=== PATIENT | female | born 1995 | race Caucasian/White ===

== ENCOUNTER 2021-05-10 05:28 | Inpatient (IN) | payer MEDICAID ==
[2021-05-10] MEDS ORDERED: Nalbuphine 10 MG/1 ML Vial IVPUSH PRN (06:33)
[2021-05-10] MEDS ORDERED: Sodium Chloride 0.9% 10 ML Syringe FLUSH PRN (06:33)
[2021-05-10] MEDS ORDERED: Ondansetron 4 MG/2 ML SDV IVPUSH PRN (06:33)
[2021-05-10] MEDS ORDERED: Calcium Carbonate 500 MG Tab.Chew PO PRN (06:33)
[2021-05-10] MEDS ORDERED: Ampicillin 2 GM in Sodium Chloride 0.9% 100 ML IV ONE (06:33)
[2021-05-10] MEDS ORDERED: Oxytocin/Lactated Ringers 10 UNIT/1,000 ML BAG IV SCH ×2 (06:45→10:45)
[2021-05-10] MEDS ORDERED: ePHEDrine 50 MG/ML SDV IVPUSH PRN (06:53)
[2021-05-10] MEDS ORDERED: fentaNYL 100 MCG/2 ML SDV EPIDUR PRN (06:53)
[2021-05-10] MEDS ORDERED: diphenhydrAMINE 50 MG/ML SDV IVPUSH PRN (06:53)
[2021-05-10] MEDS: Lactated Ringers 1,000 ML IV SCH ×4 (07:15→16:11)
--- NOTE | 2021-05-10 07:15 | PCM.PREANE ---
Preanesthetic Assessment - Procedure Proposed Procedure: Continuous labor epidural - Anesthesia/Transfusion/Family Hx Anesthesia History: Prior Anesthesia Without Reaction - Review of Systems General: No Symptoms Pulmonary: No Symptoms Cardiovascular: No Symptoms Gastrointestinal: No Symptoms Neurological: No Symptoms Other: Reports: None - Physical Assessment Vital Signs: Last Vital Signs Temp 97.8 F 05/10/21 05:45 Pulse 80 05/10/21 05:45 Resp 16 05/10/21 05:45 BP 110/73 05/10/21 05:45 Pulse Ox 98 05/10/21 05:45 Height: 1.57 m Weight: 74.933 kg ASA Class: 2 Mental Status: Alert & Oriented x3 Airway Class: Mallampati = 2 Dentition: Reports: Partial ROM/Head Extension: Full Lungs: Clear to Auscultation, Normal Respiratory Effort Cardiovascular: Regular Rate, Regular Rhythm - Lab Values: Laboratory Last Values WBC 12.24 K/mm3 (3.98-10.04) H 05/10/21 06:55 RBC 4.26 M/mm3 (3.98-5.22) 05/10/21 06:55 Hgb 11.3 gm/dl (11.2-15.7) 05/10/21 06:55 Hct 34.3 % (34.1-44.9) 05/10/21 06:55 MCV 80.5 fl (79.4-94.8) 05/10/21 06:55 MCH 26.5 pg (25.6-32.2) 05/10/21 06:55 MCHC 32.9 g/dl (32.2-35.5) 05/10/21 06:55 RDW Std Deviation 42.5 fL (36.4-46.3) 05/10/21 06:55 Plt Count 304 K/mm3 (182-369) 05/10/21 06:55 MPV 9.1 fl (9.4-12.3) L 05/10/21 06:55 Neut % (Auto) 66.1 % (34.0-71.1) 05/10/21 06:55 Lymph % (Auto) 20.5 % (19.3-51.7) 05/10/21 06:55 Cobb % (Auto) 8.2 % (4.7-12.5) 05/10/21 06:55 Eos % (Auto) 3.6 (0.7-5.8) 05/10/21 06:55 Baso % (Auto) 0.2 % (0.1-1.2) 05/10/21 06:55 Neut # (Auto) 8.10 K/mm3 (1.56-6.13) H 05/10/21 06:55 Lymph # (Auto) 2.51 K/mm3 (1.18-3.74) 05/10/21 06:55 Cobb # (Auto) 1.00 K/mm3 (0.24-0.36) H 05/10/21 06:55 Eos # (Auto) 0.44 K/mm3 (0.04-0.36) H 05/10/21 06:55 Baso # (Auto) 0.02 K/mm3 (0.01-0.08) 05/10/21 06:55 - Allergies Allergies/Adverse Reactions: Allergies Allergy/AdvReac Type Severity Reaction Status Date / Time bupropion [From Wellbutrin] Allergy Other Verified 05/10/21 06:33 clindamycin Allergy Other Verified 05/10/21 06:33 sertraline [From Zoloft] Allergy Fainting Verified 05/10/21 06:33 - Acknowledgements Anesthesia Type Planned: Epidural Pt an Appropriate Candidate for the Planned Anesthesia: Yes Alternatives and Risks of Anesthesia Discussed w Pt/Guardian: Yes Pt/Guardian Understands and Agrees with Anesthesia Plan: Yes PreAnesthesia Questionnaire - CURRENT (IN HOUSE) MEDS Current Meds: Current Medications Calcium Carbonate/Glycine (Calcium Carbonate 500 Mg Tab.Chew) 1,000 mg PO Q2H PRN PRN Reason: Indigestion Diphenhydramine HCl (Diphenhydramine 50 Mg/Ml Sdv) 25 mg IVPUSH Q6H PRN PRN Reason: pruritis Ephedrine Sulfate (Ephedrine 50 Mg/Ml Sdv) 5 mg IVPUSH ASDIRECTED PRN PRN Reason: Hypotension Fentanyl (Fentanyl 100 Mcg/2 Ml Sdv) 100 mcg EPIDUR Q3H PRN PRN Reason: Pain Fentanyl/Bupivacaine HCl (Bupivacaine/Fentanyl/Ns 100 Ml Bag) 100 ml EPIDUR ASDIRECTED PRN PRN Reason: Pain Lactated Ringer's (Ringers, Lactated) 1,000 mls @ 100 mls/hr IV ASDIRECTED MASSIEL Ampicillin Sodium 1 gm/ Sodium (Chloride) 100 mls @ 200 mls/hr IV Q4H MASSIEL Oxytocin/Lactated Ringer's (Pitocin In Lr 10 Units/1,000 Ml) 10 unit in 1,000 mls @ 500 mls/hr IV .CONTINUOUS MASSIEL Nalbuphine HCl (Nalbuphine 10 Mg/1 Ml Vial) 10 mg IVPUSH Q2H PRN PRN Reason: Pain Ondansetron HCl (Ondansetron 4 Mg/2 Ml Sdv) 4 mg IVPUSH Q4H PRN PRN Reason: Nausea/Vomiting Sodium Chloride (Sodium Chloride 0.9% 10 Ml Syringe) 10 ml FLUSH ASDIRECTED PRN PRN Reason: Keep Vein Open Discontinued Medications Ampicillin Sodium 2 gm/ Sodium (Chloride) 100 mls @ 200 mls/hr IV ONETIME ONE Stop: 05/10/21 07:02
[2021-05-10] MEDS: Bupivacaine/fentaNYL/NS 100 ML Bag EPIDUR PRN ×3 (07:33→19:41)
[2021-05-10] MEDS ORDERED: LORazepam 0.5 MG Tab PO PRN (07:44)
--- NOTE | 2021-05-10 07:47 | PCM.LDHP ---
L&D History of Present Illness - General Date of Service: 05/10/21 Admit Problem/Dx: Patient Status Order with Admit Dx/Problem 05/10/21 06:01 Patient Status [ADT] Routine 05/10/21 06:33 Patient Status [ADT] Routine Admission Diagnosis/Problem Admission Diagnosis/Problem Source of Information: Patient History Limitations: Reports: No Limitations - History of Present Illness Introduction:: Sagrario Kwong is a 25-year-old -0-0-3 female at 39 weeks 0 days ([facility] 05/17/2021) by LMP consistent with 12-week ultrasound who presents with contractions every 7 to 10 minutes. She states that the contractions were initially around 15 to 20 minutes apart at 2 AM and then got to be about 7 to 10 minutes apart at 4 AM. She denies any vaginal bleeding or leaking fluid. She reports good movement. She states that she has not been taking her buspirone 7.5 mg twice daily due to not having the medication available. She has not gone home since her appointment on 05/08/2021, to review get the medication from there. She states that after she had the insertion of the epidural she did have some mild anxiety but over the next few minutes this did resolve spontaneously and she has not had any ongoing issues. She was restarted on her buspirone. Location, : Reports: Lower back, Pelvic Pain Score: 7 Associated Symptoms: Denies: vaginal bleeding, vaginal discharge, vaginal fluid Present Illness Comments:: Sagrario Kwong is a 25-year-old -0-0-3 female at 39 weeks 0 days ([facility] 05/17/2021) by LMP consistent with a 12-week ultrasound who presents with active labor. She initially had care in [place] but transferred care to Dr. Houston at 33 weeks gestational age due to desiring to have a trial of labor after section with this . Patient had a section in [facility] first due to abnormal labor and has had 2 subsequent vaginal deliveries after without complications. Her was complicated by gonorrhea and chlamydia infection that was diagnosed on 04/24/2021. She was treated on 05/04/2021 for both of these infections. She is GBS positive. Her care has been with Dr. Houston and is complicated by: * History of section in her first due to abnormal labor. She has had 2 vaginal deliveries after section that have been overall uncomplicated. * GBS positive status and should be treated with antibiotics in labor * History of drug use with methamphetamine use during this . Reports most recent drug use was approximately 2 weeks ago when she had a relapse and smoked methamphetamine. Reports that she did use methamphetamine in early but stopped when she found out she was . Denies any injection drug use. * Anxiety/depression currently on buspirone with history of depression after her first * Gonorrhea and chlamydia infection diagnosed at 36 weeks gestational age and treated at 38 weeks gestational age [employer] history -0-0-3 G1: 10/09/2012, 40 weeks 5 days, for dysfunctional labor, male infant, 7 pounds 11 ounces, epidural for anesthesia G2: 06/12/2017, 38 weeks, vaginal delivery after section, female , 6 pounds 12 ounces, epidural for anesthesia G3: 06/11/2018, 40 weeks, vaginal delivery after section, male , 7 pounds 10.6 ounces, epidural for anesthesia, infant with cephalhematoma, facial bruising and respiratory distress G4: Current labs Blood type: O+ Antibody screen: Negative First trimester hematocrit/hemoglobin: 37.9%/12.8 on 12/04/2020 Platelets: 280 on 12/04/2020 Rubella status: Immune Hepatitis B surface antigen: Negative RPR: Negative HIV: Negative Gonorrhea: Positive on 04/24/2021, treated on 05/04/2021 Chlamydia: Positive on 04/24/2021, treated on 05/04/2021 One hour glucose tolerance test: Not performed per patient report GBS status: Positive - Related Data Allergies/Adverse Reactions: Allergies Allergy/AdvReac Type Severity Reaction Status Date / Time bupropion [From Wellbutrin] Allergy Other Verified 05/10/21 06:33 clindamycin Allergy Other Verified 05/10/21 06:33 sertraline [From Zoloft] Allergy Fainting Verified 05/10/21 06:33 Home Medications: Home Meds Cholecalciferol (Vitamin D3) [Vitamin D] 1 tab PO DAILY 05/10/21 [History] Pnv No.95/Ferrous Fum/Folic AC [ Vitamin Tablet] 1 tab PO DAILY 05/10/21 [History] busPIRone HCl [Buspirone HCl] 1 tab PO DAILY 05/10/21 [History] Past Medical History : 4 Para: 3 Psychiatric History: Reports: Anxiety, Depression, Other (See Below) (History of depression after first ) - Past Surgical History HEENT Surgical History: Reports: Oral Surgery (on jaw due to dislocated jaw), Other (See Below) ([place] teeth extraction) GI Surgical History: Reports: Cholecystectomy Female Surgical History: Reports: Breast Implant, Section (x1) Social & Family History - Tobacco Use Tobacco Use Status *Q: Current Every Day Tobacco User Tobacco Use Within Last Twelve Months: Vaping Smoking Cessation Information Provided To Patient: Yes - Tobacco Core Measures Tobacco Use/Smoking Within Last 30 Days: No Smokeless Tobacco Use in Last 30 Days: Yes Smokeless Tobacco Use History: Other Alternative Nicotine Product Use: Reports: Vaping Desires Tobacco Cessation Medication: Yes - Alcohol Use Alcohol Use History: No - Recreational Drug Use Recreational Drug Use: Yes Drug Use in Last 12 Months: Yes Recreational Drug Type: Reports: Methamphetamine (smoking) H&P Review of Systems - Review of Systems: Review Of Systems: See Below General: Reports: Fever (last week after she felt ill, none in last few days). Denies: Chills, Malaise, Weakness HEENT: Reports: Rhinitis, Post Nasal Drip, Sinus Congestion. Denies: Headaches, Sore Throat, Visual Changes Pulmonary: Denies: Shortness of Breath, Wheezing, Pleuritic Chest Pain, Cough Cardiovascular: Denies: Chest Pain, Palpitations, Dyspnea on Exertion Gastrointestinal: Denies: Abdominal Pain, Constipation, Diarrhea, Nausea, Vomiting Genitourinary: Denies: Dysuria, Frequency, Burning, Pain, Urgency Musculoskeletal: Reports: Back Pain (and pelvic pain with pressure) Skin: Denies: Rash L&D Exam - Exam Exam: See Below - Vital Signs Vital Signs: Last Vital Signs Temp 36.6 C 05/10/21 05:45 Pulse 80 05/10/21 05:45 Resp 16 05/10/21 05:45 BP 110/73 05/10/21 05:45 Pulse Ox 98 05/10/21 05:45 Weight: 74.933 kg - OB Specific Contraction Duration (sec): 45-75 Contraction Frequency (min): 8-10 Contraction Intensity: Moderate Movement: Active Heart Tones: Present Heart Tones per Min: 125 (+15 x 15 accelerations, no decelerations) Heart Rate (FHR) Variability: Moderate (6-25 bpm) Presentation: Vertex Estimated Weight: 7 to 7.5 pounds by Freddie - Solares Score Solares Score Cervix Position: Midposition Solares Score Consistency: Soft Solares Score Effacement: 31-50% (50%) Solares Score Dilation: 3-4 cm (4.5 cm) Solares Score 's Station: -3 Solares Score Total: 6 - Exam General: Alert, Oriented HEENT: Conjunctiva Clear, EOMI Neck: Supple, Trachea Midline Lungs: Clear to Auscultation, Normal Respiratory Effort Cardiovascular: Regular Rate, Regular Rhythm GI/Abdominal Exam: Soft, No Distention, Other (Gravid). No: Guarding, Rigid, Rebound Genitourinary: Normal external exam Extremities: Normal Inspection, No Pedal Edema Skin: Warm, Dry, Intact Psychiatric: Alert, Normal Affect, Normal Mood - Patient Data Lab Results Last 24 hrs: Laboratory Results - last 24 hr 05/10/21 Range/Units 06:55 WBC 12.24 H (3.98-10.04) K/mm3 RBC 4.26 (3.98-5.22) M/mm3 Hgb 11.3 (11.2-15.7) gm/dl Hct 34.3 (34.1-44.9) % MCV 80.5 (79.4-94.8) fl MCH 26.5 (25.6-32.2) pg MCHC 32.9 (32.2-35.5) g/dl RDW Std Deviation 42.5 (36.4-46.3) fL Plt Count 304 (182-369) K/mm3 MPV 9.1 L (9.4-12.3) fl Neut % (Auto) 66.1 (34.0-71.1) % Lymph % (Auto) 20.5 (19.3-51.7) % Armstrong % (Auto) 8.2 (4.7-12.5) % Eos % (Auto) 3.6 (0.7-5.8) Baso % (Auto) 0.2 (0.1-1.2) % Neut # (Auto) 8.10 H (1.56-6.13) K/mm3 Lymph # (Auto) 2.51 (1.18-3.74) K/mm3 Armstrong # (Auto) 1.00 H (0.24-0.36) K/mm3 Eos # (Auto) 0.44 H (0.04-0.36) K/mm3 Baso # (Auto) 0.02 (0.01-0.08) K/mm3 Manual Slide Review Normal smear Result Diagrams: 05/10/21 06:55 - Problem List (1) 39 weeks gestation of SNOMED Code(s): 26610109 ICD Code: Z3A.39 - 39 WEEKS GESTATION OF Status: Acute Current Visit: Yes (2) GBS (group B Streptococcus carrier), +RV culture, currently SNOMED Code(s): 7801356187961, 433821440, 6568964691984 ICD Code: O99.820 - STREPTOCOCCUS B CARRIER STATE COMPLICATING Status: Acute Current Visit: Yes (3) History of delivery SNOMED Code(s): 836197230 ICD Code: Z98.891 - HISTORY OF UTERINE SCAR FROM PREVIOUS SURGERY Status: Acute Current Visit: Yes (4) History of delivery, currently SNOMED Code(s): 341360624, 007564338 ICD Code: O34.219 - MATERNAL CARE FOR UNSP TYPE SCAR FROM PREVIOUS DEL Status: Acute Current Visit: Yes (5) History of vaginal after SNOMED Code(s): 323153589, 124364300 ICD Code: Z98.891 - HISTORY OF UTERINE SCAR FROM PREVIOUS SURGERY Status: Acute Current Visit: Yes (6) Gonorrhea affecting in third trimester SNOMED Code(s): 833379623586493, 852251728, 084000966349036 ICD Code: O98.213 - GONORRHEA COMPLICATING , THIRD TRIMESTER Status: Acute Current Visit: Yes (7) Chlamydia infection affecting in third trimester SNOMED Code(s): 7571977972578 ICD Code: O98.813 - OTH MATERNAL INFEC/PARASTC DISEASES COMP PREG, THIRD TRI; A74.9 - CHLAMYDIAL INFECTION, UNSPECIFIED Status: Acute Current Visit: Yes (8) Methamphetamine abuse SNOMED Code(s): 561976164 ICD Code: F15.10 - OTHER STIMULANT ABUSE, UNCOMPLICATED Status: Acute Current Visit: Yes (9) Anxiety SNOMED Code(s): 40439167 ICD Code: F41.9 - ANXIETY DISORDER, UNSPECIFIED Status: Acute Current Visit: Yes (10) Depression SNOMED Code(s): 64468708 ICD Code: F32.9 - MAJOR DEPRESSIVE DISORDER, SINGLE EPISODE, UNSPECIFIED Status: Acute Current Visit: Yes (11) Depression affecting SNOMED Code(s): 23284350603081 ICD Code: O99.340 - OTH MENTAL DISORDERS COMPLICATING , UNSP TRIMESTER; F32.9 - MAJOR DEPRESSIVE DISORDER, SINGLE EPISODE, UNSPECIFIED Status: Acute Current Visit: Yes Problem List Initiated/Reviewed/Updated: Yes Orders Last 24hrs: Active Orders 24 hr Category Date Time Status Patient Status [ADT] Routine ADT 05/10/21 06:33 Active Activity as Tolerated [RC] PFP Care 05/10/21 06:33 Active Communication Order [RC] ASDIRECTED Care 05/10/21 06:33 Active Heart Tones [RC] CONTINUOUS Care 05/10/21 06:33 Active Non Stress Test [RC] PER UNIT ROUTINE Care 05/10/21 06:01 Active Notify Provider [RC] ASDIRECTED Care 05/10/21 06:53 Active Notify Provider [RC] PFP Care 05/10/21 06:33 Active Notify Provider [RC] PRN Care 05/10/21 06:33 Active Peripheral IV Care [RC] . DIRECTED Care 05/10/21 06:33 Active Verify Patient Consent Obtain [RC] ASDIRECTED Care 05/10/21 06:36 Active Vital Signs [RC] PER UNIT ROUTINE Care 05/10/21 06:01 Active Regular Diet [DIET] Diet 05/10/21 Breakfast Active CORONAVIRUS COVID-19 ANGELO [MOLEC] Stat Lab 05/10/21 06:35 Received HEP C VIRUS AB [REF] Stat Lab 05/10/21 06:55 Received RAPID PLASMA REAGIN,RPR [CHEM] Routine Lab 05/10/21 06:55 Received TYPE AND SCREEN [BBK] Stat Lab 05/10/21 06:55 Received Ampicillin 1 gm Med 05/10/21 10:45 Active Sodium Chloride 0.9% [Normal Saline] 100 ml IV Q4H Bupivacaine/fentaNYL/NS [fentaNYL/Bupivacaine/NS 2 MCG- Med 05/10/21 06:53 Active 0.125% 100 ML] 100 ml EPIDUR ASDIRECTED PRN Calcium Carbonate [Tums] Med 05/10/21 06:33 Active 1,000 mg PO Q2H PRN Lactated Ringers [Ringers, Lactated] 1,000 ml Med 05/10/21 06:45 Active IV ASDIRECTED Nalbuphine [Nubain] Med 05/10/21 06:33 Active 10 mg IVPUSH Q2H PRN Ondansetron [Zofran] Med 05/10/21 06:33 Active 4 mg IVPUSH Q4H PRN Oxytocin/Lactated Ringers [Pitocin in LR 10 Units/1,000 Med 05/10/21 06:45 Active ML] 10 unit in 1,000 ml IV .CONTINUOUS Sodium Chloride 0.9% [Saline Flush] Med 05/10/21 06:33 Active 10 ml FLUSH ASDIRECTED PRN diphenhydrAMINE [Benadryl] Med 05/10/21 06:53 Active 25 mg IVPUSH Q6H PRN ePHEDrine [ePHEDrine sulfate] Med 05/10/21 06:53 Active 5 mg IVPUSH ASDIRECTED PRN fentaNYL [Sublimaze] Med 05/10/21 06:53 Active 100 mcg EPIDUR Q3H PRN Electronic Heart Tones Ext w TOCO [WOMSER] Oth 05/10/21 06:33 Ordered Routine Electronic Heart Tones Internal [WOMSER] Per Unit Oth 05/10/21 06:33 Ordered Routine Peripheral IV Insertion Adult [OM.PC] Routine Oth 05/10/21 06:33 Ordered Resuscitation Status Routine Resus Stat 05/10/21 06:01 Ordered Medication Orders Calcium Carbonate/Glycine (Calcium Carbonate 500 Mg Tab.Chew) 1,000 mg PO Q2H PRN PRN Reason: Indigestion Diphenhydramine HCl (Diphenhydramine 50 Mg/Ml Sdv) 25 mg IVPUSH Q6H PRN PRN Reason: pruritis Ephedrine Sulfate (Ephedrine 50 Mg/Ml Sdv) 5 mg IVPUSH ASDIRECTED PRN PRN Reason: Hypotension Fentanyl (Fentanyl 100 Mcg/2 Ml Sdv) 100 mcg EPIDUR Q3H PRN PRN Reason: Pain Last Admin: 05/10/21 07:33 Dose: 100 mcg Documented by: CHRISTIANO Fentanyl/Bupivacaine HCl (Bupivacaine/Fentanyl/Ns 100 Ml Bag) 100 ml EPIDUR ASDIRECTED PRN PRN Reason: Pain Last Admin: 05/10/21 07:33 Dose: 100 ml Documented by: CHRISTIANO Lactated Ringer's (Ringers, Lactated) 1,000 mls @ 100 mls/hr IV ASDIRECTED MASSIEL Last Admin: 05/10/21 07:15 Dose: 100 mls/hr Documented by: CHRISTIANO Ampicillin Sodium 1 gm/ Sodium (Chloride) 100 mls @ 200 mls/hr IV Q4H MASSIEL Oxytocin/Lactated Ringer's (Pitocin In Lr 10 Units/1,000 Ml) 10 unit in 1,000 mls @ 500 mls/hr IV .CONTINUOUS MASSIEL Nalbuphine HCl (Nalbuphine 10 Mg/1 Ml Vial) 10 mg IVPUSH Q2H PRN PRN Reason: Pain Ondansetron HCl (Ondansetron 4 Mg/2 Ml Sdv) 4 mg IVPUSH Q4H PRN PRN Reason: Nausea/Vomiting Sodium Chloride (Sodium Chloride 0.9% 10 Ml Syringe) 10 ml FLUSH ASDIRECTED PRN PRN Reason: Keep Vein Open Assessment/Plan Comment:: Sagrario Kwong is a 25-year-old -0-0-3 female at 39 weeks 0 days ([facility] 05/17/2021) with early labor undergoing trial of labor after section, complicated by history of section in first due to abnormal labor with arrest of dilation at around 7 cm per her report, history of successful vaginal delivery after section x2, history of drug use with methamphetamine use during with most recent use approximately 13 days ago, anxiety/depression and is currently on buspirone and recent gonorrhea and chlamydia infection that was diagnosed at 36 weeks gestational age and treated at 38 weeks gestational age Patient was counseled on the risks, benefits and alternatives of a trial of labor after section. Consents were signed in the office today. Refer to observation for early labor with trial of labor after section Monitor contractions and if not having significant cervical change in several hours then start on Pitocin for augmentation of labor Continuous monitoring Place IV and have Lactated Ringer's at 125 ml/hr May have small amounts of regular diet Activity as tolerated May have epidural as desired Plans to breast and bottle feed after delivery Start on ampicillin 2 g now and have 1 g every 4 hours after for GBS prophylaxis Anticipate vaginal delivery unless otherwise indicated Escobar Pickens MD 3:04 PM 05/10/2021
[2021-05-10] MEDS: busPIRone 15 MG Tab PO SCH ×2 (08:50→21:28)
[2021-05-10] MEDS ORDERED: Ampicillin 1 GM in Sodium Chloride 0.9% 100 ML IV SCH (10:45)
[2021-05-10] MEDS: Ampicillin 1 GM in Sodium Chloride 0.9% 100 ML IV SCH ×3 (11:55→19:38)
--- NOTE | 2021-05-10 15:08 | PCM.PNLD ---
Labor Progress Note - VS & Meds Vital Signs: Last Vital Signs Temp 36.6 C 05/10/21 05:45 Pulse 80 05/10/21 05:45 Resp 16 05/10/21 05:45 BP 110/73 05/10/21 05:45 Pulse Ox 98 05/10/21 05:45 Active Medications: Current Medications Buspirone HCl (Buspirone 15 Mg Tab) 7.5 mg PO BID MASSIEL Last Admin: 05/10/21 08:50 Dose: 7.5 mg Documented by: Calcium Carbonate/Glycine (Calcium Carbonate 500 Mg Tab.Chew) 1,000 mg PO Q2H PRN PRN Reason: Indigestion Diphenhydramine HCl (Diphenhydramine 50 Mg/Ml Sdv) 25 mg IVPUSH Q6H PRN PRN Reason: pruritis Ephedrine Sulfate (Ephedrine 50 Mg/Ml Sdv) 5 mg IVPUSH ASDIRECTED PRN PRN Reason: Hypotension Fentanyl (Fentanyl 100 Mcg/2 Ml Sdv) 100 mcg EPIDUR Q3H PRN PRN Reason: Pain Last Admin: 05/10/21 07:33 Dose: 100 mcg Documented by: Fentanyl/Bupivacaine HCl (Bupivacaine/Fentanyl/Ns 100 Ml Bag) 100 ml EPIDUR ASDIRECTED PRN PRN Reason: Pain Last Admin: 05/10/21 14:22 Dose: 100 ml Documented by: Lactated Ringer's (Ringers, Lactated) 1,000 mls @ 100 mls/hr IV ASDIRECTED MASSIEL Last Admin: 05/10/21 08:24 Dose: 100 mls/hr Documented by: Oxytocin/Lactated Ringer's (Pitocin In Lr 10 Units/1,000 Ml) 10 unit in 1,000 mls @ 500 mls/hr IV .CONTINUOUS MASSIEL Oxytocin/Lactated Ringer's (Pitocin In Lr 10 Units/1,000 Ml) 10 unit in 1,000 mls @ 12 mls/hr IV TITRATE MASSIEL; Protocol Last Titration: 05/10/21 13:00 Dose: 6 munits/min, 36 mls/hr Documented by: Ampicillin Sodium 1 gm/ Sodium (Chloride) 100 mls @ 200 mls/hr IV Q4H MASSIEL Last Admin: 05/10/21 11:55 Dose: 200 mls/hr Documented by: Nalbuphine HCl (Nalbuphine 10 Mg/1 Ml Vial) 10 mg IVPUSH Q2H PRN PRN Reason: Pain Ondansetron HCl (Ondansetron 4 Mg/2 Ml Sdv) 4 mg IVPUSH Q4H PRN PRN Reason: Nausea/Vomiting Sodium Chloride (Sodium Chloride 0.9% 10 Ml Syringe) 10 ml FLUSH ASDIRECTED PRN PRN Reason: Keep Vein Open Discontinued Medications Ampicillin Sodium 1 gm/ Sodium (Chloride) 100 mls @ 200 mls/hr IV Q4H [facility] Ampicillin Sodium 2 gm/ Sodium (Chloride) 100 mls @ 200 mls/hr IV ONETIME ONE Stop: 05/10/21 07:02 Last Admin: 05/10/21 07:46 Dose: 200 mls/hr Documented by: Lorazepam (Lorazepam 0.5 Mg Tab) 0.5 mg PO Q8H PRN PRN Reason: Anxiety - Uterine Contractions Uterine Monitoring Mode: External [place] Contraction Frequency (min): 2-3 Contraction Duration (sec): 60-75 Contraction Intensity: Moderate to Strong Uterine Resting Tone: Soft - Monitoring Monitor Mode: Doppler/Auscultation Heart Rate (FHR) Baseline: 140 Heart Rate (FHR) Per Doppler: 140 Heart Rate (FHR) Variability: Moderate (6-25 bpm) Accelerations: Present, 15x15 Decelerations: Early Strip Review: Category I - Vaginal Exam Dilation (cm): 5 Effacement (Percent): 80 Station: -3 Cervical Position: Midposition Sterile Vaginal Exam Performed By: Escobar Pickens Vaginal Exam Comment: Artificial rupture membranes performed with [place] with return of moderate amount of light meconium stained fluid. Mother and infant tolerated procedure without difficulty. There were some intermittent variable decelerations after initial rupture of membranes. - Labor Progress (Free Text) Labor Progress: Sagrario Kwong is a 25-year-old -0-0-3 female at 39 weeks 0 days ([facility]I 05/17/2021) undergoing trial of labor after section, complicated by history of section in first due to abnormal labor with arrest of dilation at around 7 cm per her report, history of successful vaginal delivery after section x2, history of drug use with methamphetamine use during with most recent use approximately 13 days ago, anxiety/depression and is currently on buspirone and recent gonorrhea and chlamydia infection that was diagnosed at 36 weeks gestational age and treated at 38 weeks gestational age Patient had artificial rupture membranes with return of moderate amount of light meconium stained fluid Continue Pitocin for augmentation of labor Continuous monitoring Routine vitals Continue ampicillin for GBS prophylaxis Patient with epidural for anesthesia Anticipate vaginal delivery unless otherwise indicated Escobar Pickens MD 3:09 PM 05/10/2021
[2021-05-11] MEDS: Ampicillin 1 GM in Sodium Chloride 0.9% 100 ML IV SCH ×2 (00:42→06:51)
[2021-05-11] MEDS: Lactated Ringers 1,000 ML IV SCH (00:43)
[2021-05-11] MEDS: Bupivacaine/fentaNYL/NS 100 ML Bag EPIDUR PRN (01:20)
--- NOTE | 2021-05-11 04:03 | PCM.DEL ---
L & D Note - General Info Date of Service: 05/11/21 Mother's Due Date: 05/17/21 - Delivery Note Labor: Augmented by ARM, Augmented by Oxytocin Delivery Outcome: Livebirth Delivery Method: Spontaneous Vaginal Delivery-Single Presentation: Left Occiput Anterior (ANGELIQUE) Nuchal Cord: None Prep: Povidone-Iodine (Betadine Anesthesia Type: Epidural Amniotic Fluid Description: Meconium Stained (light) Episiotomy Type: None Laceration: Labial (left medial labial laceration, repaired with 3-0 Vicryl) Suture type: Vicryl Suture size: 3-0 Placenta: Intact, Spontaneous Cord: 3 Vessels Estimated Blood Loss: 200 Resuscitation Needed: No [place]: Bulb Syringe, Stimulated, Warmed, [place] Used Provider: Elías Cano Score 1 min: 8 Score 5 min: 9 Second Stage Interventions: Reports: Pushing Effectively, Pushing, Stirrups/Leg Supports Delivery Comments (Free Text/Narrative):: Stage I: Sagrario Kwong was admitted for early labor. On admission her cervix was dilated to 3 to 4 cm. She was GBS positive and was started on ampicillin for GBS prophylaxis. She received a total of 5 doses of ampicillin prior to delivery. She was given an epidural for anesthesia. She was making minimal progress with contractions after placement of the epidural and was started on Pitocin for augmentation of labor. She had artificial rupture membranes with return of small amount of light meconium stained fluid. Patient began to have some variable decelerations and Pitocin was stopped. The Pitocin was discontinued fo r several hours while the mom and baby recovered. She was not having a regular contraction pattern and Pitocin was restarted. Patient made slow progress throughout the evening and into the morning of HD #2. In the morning of HD #2 the cervix was evaluated and noted to be 9 cm with small amount of swelling but the cervix was stretchy and felt to be able to pass around the baby's head with pushing. Mother began pushing at this time and the cervix was able to be reduced behind the head and the patient continued to push until delivery Stage II: On 05/11/2021 she had a normal vaginal delivery after section of a live male infant at 03:20. Apgars of 8 & 9. Weight of 3480 g (7 lbs 10.8 oz). There was no nuchal cord. was delivered in ANGELIQUE position. The cord was doubly clamped and cut by grandmother of the at approximately 60 seconds after delivery of the baby. was placed on mother's abdomen. Stage III: She had a spontaneous delivery of an intact placenta in [place] presentation. A cord segment was collected for evaluation due to methamphetamine use during . Three vessel cord. She was given pitocin and fundal massage. She had left medial labia minora laceration that extended near the urethral meatus that was repaired with 3-0 Vicryl. Mom and baby were stable to recovery. EBL of 200 mL. Escobar Pickens MD 4:01 AM 05/11/2021 - General Info Date of Service: 05/11/21 - Patient Data Vitals - Most Recent: Last Vital Signs Temp 36.6 C 05/10/21 05:45 Pulse 80 05/10/21 05:45 Resp 16 05/10/21 05:45 BP 110/73 05/10/21 05:45 Pulse Ox 98 05/10/21 05:45 Weight - Most Recent: 74.933 kg I&O - Last 24 Hours: Intake & Output 05/10/21 05/10/21 05/11/21 14:59 22:59 06:59 Intake Total 120 Balance 120 Lab Results Last 24 Hours: Laboratory Results - last 24 hr 05/10/21 05/10/21 05/10/21 Range/Units 06:35 06:55 06:55 WBC 12.24 H (3.98-10.04) K/mm3 RBC 4.26 (3.98-5.22) M/mm3 Hgb 11.3 (11.2-15.7) gm/dl Hct 34.3 (34.1-44.9) % MCV 80.5 (79.4-94.8) fl MCH 26.5 (25.6-32.2) pg MCHC 32.9 (32.2-35.5) g/dl RDW Std Deviation 42.5 (36.4-46.3) fL Plt Count 304 (182-369) K/mm3 MPV 9.1 L (9.4-12.3) fl Neut % (Auto) 66.1 (34.0-71.1) % Lymph % (Auto) 20.5 (19.3-51.7) % Dare % (Auto) 8.2 (4.7-12.5) % Eos % (Auto) 3.6 (0.7-5.8) Baso % (Auto) 0.2 (0.1-1.2) % Neut # (Auto) 8.10 H (1.56-6.13) K/mm3 Lymph # (Auto) 2.51 (1.18-3.74) K/mm3 Dare # (Auto) 1.00 H (0.24-0.36) K/mm3 Eos # (Auto) 0.44 H (0.04-0.36) K/mm3 Baso # (Auto) 0.02 (0.01-0.08) K/mm3 Manual Slide Review Normal smear POC Glucose (70-99) mg/dL Urine Opiates Screen (XVFSCL=667) Ur Buprenorphine Scrn (CUTOFF=10) Ur Oxycodone Screen (BVL6QB=836) Urine Methadone Screen (NXODLA=261) Ur Propoxyphene Screen (PPPGNV=037) Ur Barbiturates Screen (NVMBRB=811) Ur Tricyclics Screen (TPTIEM=772) Ur Phencyclidine Scrn (CUTOFF=25) Ur Amphetamine Screen (UDZNBF=297) U Methamphetamines Scrn (QRIVAI=363) U Benzodiazepines Scrn (GJUSNE=788) U Cocaine Metab Screen (PXJGIG=513) U Marijuana (THC) Screen (CUTOFF=50) RPR Non-reactive (NONREACTIVE) SARS-CoV-2 RNA (ANGELO) Negative (NEGATIVE) Blood Type Gel Antibody Screen 05/10/21 05/10/21 05/10/21 Range/Units 06:55 08:50 09:08 WBC (3.98-10.04) K/mm3 RBC (3.98-5.22) M/mm3 Hgb (11.2-15.7) gm/dl Hct (34.1-44.9) % MCV (79.4-94.8) fl MCH (25.6-32.2) pg MCHC (32.2-35.5) g/dl RDW Std Deviation (36.4-46.3) fL Plt Count (182-369) K/mm3 MPV (9.4-12.3) fl Neut % (Auto) (34.0-71.1) % Lymph % (Auto) (19.3-51.7) % Dare % (Auto) (4.7-12.5) % Eos % (Auto) (0.7-5.8) Baso % (Auto) (0.1-1.2) % Neut # (Auto) (1.56-6.13) K/mm3 Lymph # (Auto) (1.18-3.74) K/mm3 Dare # (Auto) (0.24-0.36) K/mm3 Eos # (Auto) (0.04-0.36) K/mm3 Baso # (Auto) (0.01-0.08) K/mm3 Manual Slide Review POC Glucose 76 (70-99) mg/dL Urine Opiates Screen Negative (GFHRZF=915) Ur Buprenorphine Scrn Negative (CUTOFF=10) Ur Oxycodone Screen Negative (KYO8PJ=861) Urine Methadone Screen Negative (ETGEYL=147) Ur Propoxyphene Screen Negative (LHXEFS=857) Ur Barbiturates Screen Negative (FZXRTX=496) Ur Tricyclics Screen Negative (FDGRED=838) Ur Phencyclidine Scrn Negative (CUTOFF=25) Ur Amphetamine Screen Negative (UBKTFE=032) U Methamphetamines Scrn Negative (RFXDPF=263) U Benzodiazepines Scrn Negative (YUBZVF=783) U Cocaine Metab Screen Negative (YTPBZL=936) U Marijuana (THC) Screen Negative (CUTOFF=50) RPR (NONREACTIVE) SARS-CoV-2 RNA (ANGELO) (NEGATIVE) Blood Type O POSITIVE Gel Antibody Screen Negative 05/10/21 Range/Units 11:25 WBC (3.98-10.04) K/mm3 RBC (3.98-5.22) M/mm3 Hgb (11.2-15.7) gm/dl Hct (34.1-44.9) % MCV (79.4-94.8) fl MCH (25.6-32.2) pg MCHC (32.2-35.5) g/dl RDW Std Deviation (36.4-46.3) fL Plt Count (182-369) K/mm3 MPV (9.4-12.3) fl Neut % (Auto) (34.0-71.1) % Lymph % (Auto) (19.3-51.7) % Dare % (Auto) (4.7-12.5) % Eos % (Auto) (0.7-5.8) Baso % (Auto) (0.1-1.2) % Neut # (Auto) (1.56-6.13) K/mm3 Lymph # (Auto) (1.18-3.74) K/mm3 Dare # (Auto) (0.24-0.36) K/mm3 Eos # (Auto) (0.04-0.36) K/mm3 Baso # (Auto) (0.01-0.08) K/mm3 Manual Slide Review POC Glucose 144 H (70-99) mg/dL Urine Opiates Screen (QQWOPR=428) Ur Buprenorphine Scrn (CUTOFF=10) Ur Oxycodone Screen (QIG1QP=133) Urine Methadone Screen (VIVJPU=633) Ur Propoxyphene Screen (SUCPSQ=101) Ur Barbiturates Screen (MWTRDA=218) Ur Tricyclics Screen (UFTNBW=530) Ur Phencyclidine Scrn (CUTOFF=25) Ur Amphetamine Screen (FFWKUS=668) U Methamphetamines Scrn (SKNKPA=666) U Benzodiazepines Scrn (YIUZQZ=993) U Cocaine Metab Screen (WJPZXT=089) U Marijuana (THC) Screen (CUTOFF=50) RPR (NONREACTIVE) SARS-CoV-2 RNA (ANGELO) (NEGATIVE) Blood Type Gel Antibody Screen Med Orders - Current: Current Medications Buspirone HCl (Buspirone 15 Mg Tab) 7.5 mg PO BID MASSIEL Last Admin: 05/10/21 21:28 Dose: 7.5 mg Documented by: Calcium Carbonate/Glycine (Calcium Carbonate 500 Mg Tab.Chew) 1,000 mg PO Q2H PRN PRN Reason: Indigestion Diphenhydramine HCl (Diphenhydramine 50 Mg/Ml Sdv) 25 mg IVPUSH Q6H PRN PRN Reason: pruritis Ephedrine Sulfate (Ephedrine 50 Mg/Ml Sdv) 5 mg IVPUSH ASDIRECTED PRN PRN Reason: Hypotension Fentanyl (Fentanyl 100 Mcg/2 Ml Sdv) 100 mcg EPIDUR Q3H PRN PRN Reason: Pain Last Admin: 05/10/21 07:33 Dose: 100 mcg Documented by: Fentanyl/Bupivacaine HCl (Bupivacaine/Fentanyl/Ns 100 Ml Bag) 100 ml EPIDUR ASDIRECTED PRN PRN Reason: Pain Last Admin: 05/11/21 01:20 Dose: 100 ml Documented by: Lactated Ringer's (Ringers, Lactated) 1,000 mls @ 100 mls/hr IV ASDIRECTED MASSIEL Last Admin: 05/11/21 00:43 Dose: 100 mls/hr Documented by: Oxytocin/Lactated Ringer's (Pitocin In Lr 10 Units/1,000 Ml) 10 unit in 1,000 mls @ 500 mls/hr IV .CONTINUOUS MASSIEL Oxytocin/Lactated Ringer's (Pitocin In Lr 10 Units/1,000 Ml) 10 unit in 1,000 mls @ 12 mls/hr IV TITRATE MASSIEL; Protocol Last Titration: 05/11/21 00:25 Dose: 6 munits/min, 36 mls/hr Documented by: Ampicillin Sodium 1 gm/ Sodium (Chloride) 100 mls @ 200 mls/hr IV Q4H MASSIEL Last Admin: 05/11/21 00:42 Dose: 200 mls/hr Documented by: Nalbuphine HCl (Nalbuphine 10 Mg/1 Ml Vial) 10 mg IVPUSH Q2H PRN PRN Reason: Pain Ondansetron HCl (Ondansetron 4 Mg/2 Ml Sdv) 4 mg IVPUSH Q4H PRN PRN Reason: Nausea/Vomiting Sodium Chloride (Sodium Chloride 0.9% 10 Ml Syringe) 10 ml FLUSH ASDIRECTED PRN PRN Reason: Keep Vein Open Discontinued Medications Ampicillin Sodium 1 gm/ Sodium (Chloride) 100 mls @ 200 mls/hr IV Q4H [facility] Last Admin: 05/10/21 22:11 Dose: Not Given Documented by: Ampicillin Sodium 2 gm/ Sodium (Chloride) 100 mls @ 200 mls/hr IV ONETIME ONE Stop: 05/10/21 07:02 Last Admin: 05/10/21 07:46 Dose: 200 mls/hr Documented by: Lorazepam (Lorazepam 0.5 Mg Tab) 0.5 mg PO Q8H PRN PRN Reason: Anxiety - Exam Urinary Catheter Total Time: 0Days 3Hours - Problem List & Annotations (1) 39 weeks gestation of SNOMED Code(s): 56127449 Code(s): Z3A.39 - 39 WEEKS GESTATION OF Status: Acute Current Visit: Yes (2) GBS (group B Streptococcus carrier), +RV culture, currently SNOMED Code(s): 3476982705420, 180922262, 9842950405366 Code(s): O99.820 - STREPTOCOCCUS B CARRIER STATE COMPLICATING Status: Acute Current Visit: Yes (3) History of delivery SNOMED Code(s): 469051280 Code(s): Z98.891 - HISTORY OF UTERINE SCAR FROM PREVIOUS SURGERY Status: Acute Current Visit: Yes (4) History of delivery, currently SNOMED Code(s): 025952748, 966918928 Code(s): O34.219 - MATERNAL CARE FOR UNSP TYPE SCAR FROM PREVIOUS DEL Status: Acute Current Visit: Yes (5) History of vaginal after SNOMED Code(s): 914518501, 395712233 Code(s): Z98.891 - HISTORY OF UTERINE SCAR FROM PREVIOUS SURGERY Status: Acute Current Visit: Yes (6) Gonorrhea affecting in third trimester SNOMED Code(s): 115652980553098, 149029347, 746499048158554 Code(s): O98.213 - GONORRHEA COMPLICATING , THIRD TRIMESTER Status: Acute Current Visit: Yes (7) Chlamydia infection affecting in third trimester SNOMED Code(s): 4853589351355 Code(s): O98.813 - OTH MATERNAL INFEC/PARASTC DISEASES COMP PREG, THIRD TRI; A74.9 - CHLAMYDIAL INFECTION, UNSPECIFIED Status: Acute Current Visit: Yes (8) Methamphetamine abuse SNOMED Code(s): 033701002 Code(s): F15.10 - OTHER STIMULANT ABUSE, UNCOMPLICATED Status: Acute Current Visit: Yes (9) Anxiety SNOMED Code(s): 31982227 Code(s): F41.9 - ANXIETY DISORDER, UNSPECIFIED Status: Acute Current Visit: Yes (10) Depression SNOMED Code(s): 22494004 Code(s): F32.9 - MAJOR DEPRESSIVE DISORDER, SINGLE EPISODE, UNSPECIFIED Status: Acute Current Visit: Yes (11) Depression affecting SNOMED Code(s): 42856394085305 Code(s): O99.340 - OTH MENTAL DISORDERS COMPLICATING , UNSP TRIMESTER; F32.9 - MAJOR DEPRESSIVE DISORDER, SINGLE EPISODE, UNSPECIFIED Status: Acute Current Visit: Yes (12) Vaginal delivery SNOMED Code(s): 462817282 Code(s): O80 - ENCOUNTER FOR FULL-TERM UNCOMPLICATED DELIVERY Status: Acute Current Visit: Yes (13) Vaginal delivery following previous section, delivered SNOMED Code(s): 198050812 Code(s): O34.219 - MATERNAL CARE FOR UNSP TYPE SCAR FROM PREVIOUS DEL Status: Acute Current Visit: Yes (14) Obstetric labial laceration, delivered, current hospitalization SNOMED Code(s): 649238725, 809448282, 475509317 Code(s): O70.0 - FIRST DEGREE PERINEAL LACERATION DURING DELIVERY Status: Acute Current Visit: Yes - Problem List Review Problem List Initiated/Reviewed/Updated: Yes - My Orders Last 24 Hours: My Active Orders 05/10/21 09:00 busPIRone [Buspar] 7.5 mg PO BID 05/10/21 10:45 Oxytocin/Lactated Ringers [Pitocin in LR 10 Units/1,000 ML] 10 unit in 1,000 ml IV TITRATE 05/11/21 03:46 Patient Status Manage Transfer [TRANSFER] Routine - Plan Plan:: Sagrario Kwong is a 25-year-old G4 now P4-0-0-4 female status post vaginal delivery after section, PPD #0, complicated by history of section in first due to abnormal labor with arrest of dilation at around 7 cm per her report, history of successful vaginal delivery after section x2, history of drug use with methamphetamine use during with most recent use approximately 13 days ago, anxiety/depression and is currently on buspirone and recent gonorrhea and chlamydia infection that was diagnosed at 36 weeks gestational age and treated at 38 weeks gestational age Admit to inpatient following normal spontaneous vaginal delivery after section Continue Pitocin per unit protocol following delivery of placenta and lactated Ringer's until tolerating regular diet Regular diet Vitals per unit routine Ibuprofen and Tylenol for pain control Assist with breast and bottlefeeding as needed Continue to monitor lochia Continue BuSpar for anxiety and depression Start with nicotine transdermal patch 21 mg daily Anticipate discharge home on day #1 Escobar Pickens MD 4:01 AM 05/11/2021
[2021-05-11] MEDS ORDERED: Benzocaine/Menthol 20%-0.5% Spray 56 GM Canister TOP PRN (05:04)
[2021-05-11] MEDS ORDERED: Witch Hazel Medicated Pads 40/Jar TOP PRN (05:04)
[2021-05-11] MEDS ORDERED: Nicotine 21 MG/24 Hr Patch TRDERM SCH (05:04)
[2021-05-11] MEDS ORDERED: Magnesium Hydroxide 400 MG/5 ML Susp 30 ML Cup PO PRN (05:04)
[2021-05-11] MEDS ORDERED: Hydrocortisone Acetate 25 MG Supp RECTAL PRN (05:04)
[2021-05-11] MEDS ORDERED: Oxytocin/Lactated Ringers 10 UNIT/1,000 ML BAG IV SCH (05:04)
[2021-05-11] MEDS ORDERED: Docusate Sodium 100 MG Cap PO PRN (05:04)
[2021-05-11] MEDS: Ibuprofen 600 MG Tab PO PRN ×3 (05:20→18:48)
--- NOTE | 2021-05-11 08:31 | PCM48HPAN ---
Post Anesthesia Note - EVALUATION WITHIN 48HRS OF ANESTHETIC Vital Signs in Normal Range: Yes Patient Participated in Evaluation: Yes Respiratory Function Stable: Yes Airway Patent: Yes Cardiovascular Function Stable: Yes Hydration Status Stable: Yes Pain Control Satisfactory: Yes Nausea and Vomiting Control Satisfactory: Yes Mental Status Recovered: Yes Vital Signs: Last Vital Signs Temp 97.8 F 05/10/21 05:45 Pulse 80 05/10/21 05:45 Resp 16 05/10/21 05:45 BP 110/73 05/10/21 05:45 Pulse Ox 98 05/10/21 05:45 - COMMENTS/OBSERVATIONS Free Text/Narrative:: Patient is on her day 1. No complaints. No apparent anesthesia complications.
[2021-05-11] MEDS: Prenatal Multivitamin with Calcium/Folic Acid/Iron Tab PO SCH (09:06)
[2021-05-11] MEDS: busPIRone 15 MG Tab PO SCH ×2 (09:06→21:10)
[2021-05-11] MEDS: Acetaminophen 325 MG Tab PO PRN ×3 (09:06→21:08)
[2021-05-11] MEDS ORDERED: Lidocaine 1.5% with EPINEPHrine 1:200,000 5 ML Amp ONE (14:00)
[2021-05-11] MEDS ORDERED: Nicotine 21 MG/24 Hr Patch TRDERM ONE (22:00)
[2021-05-12] MEDS: Ibuprofen 600 MG Tab PO PRN ×2 (04:31→12:48)
--- NOTE | 2021-05-12 08:31 | PCM.DCSUM1 ---
Discharge Summary - Discharge Data Discharge Date: 05/12/21 Discharge Disposition: Home, Self-Care 01 Condition: Good - Referral to Home Health Primary Care Physician: Monse Houston MD - Discharge Diagnosis/Problem(s) (1) Vaginal delivery following previous section, delivered SNOMED Code(s): 103894014 ICD Code: O34.219 - MATERNAL CARE FOR UNSP TYPE SCAR FROM PREVIOUS DEL Status: Acute Current Visit: Yes - Patient Summary/Data Complications: None Consults: Consultations 05/11/21 05:04 Consult to Case Management/Insulation Estimator [CONS] Routine Recommended Follow-up Testing/Procedures: Follow up in 3 weeks for check Hospital Course: 25 y/o at 39 0/7 wks presented in labor. Progressed well and underwent uncomplicated /. See delivery note. SW consultation done on day of delivery for patient history of methamphetamine abuse. See that note. Discharged home otherwise on PPD#1 - Patient Instructions Diet: Regular Diet as Tolerated Activity: As Tolerated Activity, Other: Pelvic rest for 6 weeks Driving: May Drive Today Showering/Bathing: May Shower Showering/Bathing, Other: May Bathe Notify Provider of: Fever, Increased Pain, Swelling and Redness, Drainage, Nausea and/or Vomiting - Discharge Plan *PRESCRIPTION DRUG MONITORING PROGRAM REVIEWED*: No *COPY OF PRESCRIPTION DRUG MONITORING REPORT IN PATIENT OZZY: No Tobacco Cessation Medication: Prescription Given Home Medications: Home Meds Pnv No.95/Ferrous Fum/Folic AC [ Vitamin Tablet] 1 tab PO DAILY 05/10/21 [History] busPIRone HCl [Buspirone HCl] 1 tab PO DAILY 05/10/21 [History] Acetaminophen [Tylenol] 650 mg PO Q6H PRN tablet 05/11/21 [Rx] Docusate Sodium [Colace] 100 mg PO BID PRN cap 05/11/21 [Rx] Ibuprofen [Motrin] 600 mg PO Q6H PRN tablet 05/11/21 [Rx] Referrals: Monse Houston MD [Primary Care Provider] - (3 weeks for check ) - Discharge Summary/Plan Comment DC Time >30 min.: No Total # of Minutes for Discharge Time: 15 - Patient Data Vitals - Most Recent: Last Vital Signs Temp 36.7 C 05/12/21 04:22 Pulse 59 L 05/12/21 04:22 Resp 14 05/12/21 04:22 BP 106/68 05/12/21 04:22 Pulse Ox 94 L 05/12/21 04:22 Weight - Most Recent: 74.933 kg Med Orders - Current: Current Medications Acetaminophen (Acetaminophen 325 Mg Tab) 650 mg PO Q6H PRN PRN Reason: mild pain or fever Last Admin: 05/11/21 21:08 Dose: 650 mg Documented by: Benzocaine/Menthol (Benzocaine/Menthol 20%-0.5% [place] 56 Gm Canister) 0 gm TOP ASDIRECTED PRN PRN Reason: Perineal Comfort Measure Last Admin: 05/11/21 05:20 Dose: 1 can Documented by: Buspirone HCl (Buspirone 15 Mg Tab) 7.5 mg PO BID [facility] Last Admin: 05/11/21 21:10 Dose: 7.5 mg Documented by: Docusate Sodium (Docusate Sodium 100 Mg Cap) 100 mg PO BID PRN PRN Reason: Constipation Hydrocortisone Acetate (Hydrocortisone Acetate 25 Mg Supp) 25 mg RECTAL BID PRN PRN Reason: Hemorrhoid pain Oxytocin/Lactated Ringer's (Pitocin In Lr 10 Units/1,000 Ml) 10 unit in 1,000 mls @ 100 mls/hr IV TITRATE MASSIEL; Protocol Ibuprofen (Ibuprofen 600 Mg Tab) 600 mg PO Q6H PRN PRN Reason: Mild pain or fever Last Admin: 05/12/21 04:31 Dose: 600 mg Documented by: Magnesium Hydroxide (Magnesium Hydroxide 400 Mg/5 Ml Susp 30 Ml Cup) 30 ml PO BEDTIME PRN PRN Reason: Constipation Nicotine (Nicotine 21 Mg/24 Hr Patch) 21 mg TRDERM DAILY [facility] Prenat Multivit/Bodywork Therapist/Iron/Folic Ac ( Multivitamin With Calcium/Folic Acid/Iron Tab) 1 each PO DAILY [facility] Last Admin: 05/11/21 09:06 Dose: 1 each Documented by: Yaya Mahajan (Yaya Mahajan Medicated Pads 40/Jar) 1 pad TOP ASDIRECTED PRN PRN Reason: Perineal Comfort Measure Last Admin: 05/11/21 05:20 Dose: 1 tub Documented by: Discontinued Medications Calcium Carbonate/Glycine (Calcium Carbonate 500 Mg Tab.Chew) 1,000 mg PO Q2H PRN PRN Reason: Indigestion Diphenhydramine HCl (Diphenhydramine 50 Mg/Ml Sdv) 25 mg IVPUSH Q6H PRN PRN Reason: pruritis Ephedrine Sulfate (Ephedrine 50 Mg/Ml Sdv) 5 mg IVPUSH ASDIRECTED PRN PRN Reason: Hypotension Fentanyl (Fentanyl 100 Mcg/2 Ml Sdv) 100 mcg EPIDUR Q3H PRN PRN Reason: Pain Last Admin: 05/10/21 07:33 Dose: 100 mcg Documented by: Fentanyl/Bupivacaine HCl (Bupivacaine/Fentanyl/Ns 100 Ml Bag) 100 ml EPIDUR ASDIRECTED PRN PRN Reason: Pain Last Admin: 05/11/21 01:20 Dose: 100 ml Documented by: Lactated Ringer's (Ringers, Lactated) 1,000 mls @ 100 mls/hr IV ASDIRECTED MASSIEL Last Admin: 05/11/21 00:43 Dose: 100 mls/hr Documented by: Ampicillin Sodium 1 gm/ Sodium (Chloride) 100 mls @ 200 mls/hr IV Q4H [facility] Last Admin: 05/10/21 22:11 Dose: Not Given Documented by: Ampicillin Sodium 2 gm/ Sodium (Chloride) 100 mls @ 200 mls/hr IV ONETIME ONE Stop: 05/10/21 07:02 Last Admin: 05/10/21 07:46 Dose: 200 mls/hr Documented by: Oxytocin/Lactated Ringer's (Pitocin In Lr 10 Units/1,000 Ml) 10 unit in 1,000 mls @ 500 mls/hr IV .CONTINUOUS MASSIEL Oxytocin/Lactated Ringer's (Pitocin In Lr 10 Units/1,000 Ml) 10 unit in 1,000 mls @ 12 mls/hr IV TITRATE MASSIEL; Protocol Last Titration: 05/11/21 00:25 Dose: 6 munits/min, 36 mls/hr Documented by: Ampicillin Sodium 1 gm/ Sodium (Chloride) 100 mls @ 200 mls/hr IV Q4H [facility]SI[facility] Last Admin: 05/11/21 06:51 Dose: Not Given Documented by: Lidocaine/Epinephrine (Lidocaine 1.5% With Epinephrine 1:200,000 5 Ml Amp) 5 ml .ROUTE .STK-MED ONE Stop: 05/11/21 14:01 Lorazepam (Lorazepam 0.5 Mg Tab) 0.5 mg PO Q8H PRN PRN Reason: Anxiety Nalbuphine HCl (Nalbuphine 10 Mg/1 Ml Vial) 10 mg IVPUSH Q2H PRN PRN Reason: Pain Nicotine (Nicotine 21 Mg/24 Hr Patch) 21 mg TRDERM DAILY [facility] Last Admin: 05/11/21 11:21 Dose: Not Given Documented by: Nicotine (Nicotine 21 Mg/24 Hr Patch) 21 mg TRDERM NOW ONE Stop: 05/11/21 22:01 Last Admin: 05/12/21 04:38 Dose: Not Given Documented by: Nicotine (Nicotine 21 Mg/24 Hr Patch) 21 mg TRDERM 2300 MASSIEL Ondansetron HCl (Ondansetron 4 Mg/2 Ml Sdv) 4 mg IVPUSH Q4H PRN PRN Reason: Nausea/Vomiting Sodium Chloride (Sodium Chloride 0.9% 10 Ml Syringe) 10 ml FLUSH ASDIRECTED PRN PRN Reason: Keep Vein Open
[2021-05-12] MEDS ORDERED: Nicotine 21 MG/24 Hr Patch TRDERM SCH ×2 (09:00→23:00)
[2021-05-12] MEDS: busPIRone 15 MG Tab PO SCH (09:50)
[2021-05-12] MEDS: Prenatal Multivitamin with Calcium/Folic Acid/Iron Tab PO SCH (09:51)
[2021-05-12] MEDS: Acetaminophen 325 MG Tab PO PRN (09:53)
== END 2021-05-12 13:15 | disposition home or self-care (01) | DRG 806 ==
LOC: JD.OBCHECK 05:28 → JD.OB 05:28 → JD.OBCHECK 06:33 → EDBD 06:33 → OBSVTOIN 05-11 03:20 → JD.OB 05-11 03:20
PROVIDERS: ADMIT Obstetrics & Gynecology; ATTEND Obstetrics & Gynecology
PROC: 10E0XZZ Delivery of Products of Conception, External Approach (ICD-10-PCS; principal; 2021-05-11)
PROC: 3E0R3BZ Introduction of Anesthetic Agent into Spinal Canal, Percutaneous Approach (ICD-10-PCS; 2021-05-11)
PROC: 0HQ9XZZ Repair Perineum Skin, External Approach (ICD-10-PCS; 2021-05-11)
PROC: 10907ZC Drainage of Amniotic Fluid, Therapeutic from Products of Conception, Via Natural or Artificial Opening (ICD-10-PCS; 2021-05-11)
DX: O99.824 Streptococcus B carrier state complicating childbirth (principal); O98.22 Gonorrhea complicating childbirth; Z37.0 Single live birth; A54.9 Gonococcal infection, unspecified; O98.82 Other maternal infectious and parasitic diseases complicating childbirth; Z3A.39 39 weeks gestation of pregnancy; O77.0 Labor and delivery complicated by meconium in amniotic fluid; O70.0 First degree perineal laceration during delivery; O99.334 Smoking (tobacco) complicating childbirth; F17.210 Nicotine dependence, cigarettes, uncomplicated; O99.344 Other mental disorders complicating childbirth; F41.9 Anxiety disorder, unspecified; F32.9 Major depressive disorder, single episode, unspecified; O99.324 Drug use complicating childbirth; F15.90 Other stimulant use, unspecified, uncomplicated; Z20.822 Contact with and (suspected) exposure to COVID-19
CPT/HCPCS: 01967; 36415; 51702; 59025; 59409; 80306; 82947; 85025; 86592; 86803; 86850; 86900; 86901; A9270-GY; J0290; J2590; J3010; J7120; U0002

== ENCOUNTER 2023-06-08 14:51 | Emergency (ER) | payer SELFPAY | END 2023-06-08 16:18 | disposition home or self-care (01) | LOC: JD.ED 14:51 | DX: K08.89 Other specified disorders of teeth and supporting structures (principal); Z88.1 Allergy status to other antibiotic agents; Z88.8 Allergy status to other drugs, medicaments and biological substances | CPT/HCPCS: 99282 ==

== ENCOUNTER 2024-02-17 10:48 | Emergency (ER) | payer MEDICAID ==
[2024-02-17] MEDS: Ketorolac 30 MG/ML SDV IVPUSH ONE (15:37)
[2024-02-17] MEDS: Ketorolac 60 MG/2 ML SDV IM ONE (15:37)
[2024-02-17] MEDS: Diazepam 5 MG Tab PO ONE (15:37)
[2024-02-17] MEDS: Lactated Ringers 1,000 ML IV ONE (15:37)
[2024-02-17] MEDS: Orphenadrine 60 MG/2 ML Inj IM ONE (15:37)
== END 2024-02-17 12:35 | disposition left against medical advice (07) ==
LOC: JD.ED 10:48
DX: S46.811A Strain of other muscles, fascia and tendons at shoulder and upper arm level, right arm, initial encounter (principal); F17.210 Nicotine dependence, cigarettes, uncomplicated; Z88.8 Allergy status to other drugs, medicaments and biological substances; Z88.1 Allergy status to other antibiotic agents; Z86.16 Personal history of COVID-19; Z86.19 Personal history of other infectious and parasitic diseases; X50.0XXA Overexertion from strenuous movement or load, initial encounter
CPT/HCPCS: 99283; 99284

== ENCOUNTER 2024-07-17 11:21 | Emergency (ER) | payer SELFPAY | END 2024-07-17 13:42 | disposition home or self-care (01) | LOC: JD.ED 11:21 | DX: R07.81 Pleurodynia (principal); F17.210 Nicotine dependence, cigarettes, uncomplicated; Z86.16 Personal history of COVID-19; Z90.49 Acquired absence of other specified parts of digestive tract; Z88.8 Allergy status to other drugs, medicaments and biological substances; Z88.1 Allergy status to other antibiotic agents | CPT/HCPCS: 71111; 71111-26; 99284 ==

== ENCOUNTER 2024-09-10 09:15 | Emergency (ER) | payer BC ==
[2024-09-10] MEDS ORDERED: Sodium Chloride 0.9% 10 ML Syringe FLUSH PRN (09:46)
[2024-09-10 10:00] LABS: BASOPHILS PERCENT AUTO 0.4 % (0.0-1.0); EOSINOPHILS ABSOLUTE AUTO 0.3 K/mm3 (0.0-0.4); EOSINOPHILS PERCENT AUTO 3.9 % (0.0-6.0); HEMATOCRIT 37.4 % (37.0-47.0); HEMOGLOBIN 12.2 gm/dl (12.0-16.0); IMMATURE GRAN ABSOLUTE AUTO 0.03 K/mm3 (0.00-0.05); IMMATURE GRAN PERCENT AUTO 0.4 % (0.0-0.4); LYMPHOCYTES ABSOLUTE AUTO 1.8 K/mm3 (1.0-4.8); LYMPHOCYTES PERCENT AUTO 26.8 % (24.0-44.0); MEAN CORPUSCULAR HEMOGLOBIN 25.8 pg (28.0-32.0); MEAN CORPUSCULAR HGB CONC 32.6 g/dl (32.0-36.0); MEAN CORPUSCULAR VOLUME 79.1 fl (83.0-99.0); MONOCYTES ABSOLUTE AUTO 0.5 K/mm3 (0.0-0.8); MONOCYTES PERCENT AUTO 7.3 % (0.0-8.0); NEUTROPHILS ABSOLUTE AUTO 4.1 K/mm3 (1.8-7.7); NEUTROPHILS PERCENT AUTO 61.2 % (41.0-71.0); PLATELET COUNT,PLT 456 K/mm3 (150-400); RED BLOOD CELL COUNT 4.73 M/mm3 (4.10-5.30); WHITE BLOOD CELL COUNT,WBC 6.71 K/mm3 (3.9-11.3)
[2024-09-10 10:15] LABS: HCG QUALITATIVE,SERUM NEGATIVE (NEGATIVE)
[2024-09-10 10:25] LABS: A/G RATIO 0.8 (1-2); ALANINE AMINOTRANSFERASE,ALT 24 U/L (14-59); ALBUMIN 3.5 g/dl (3.4-5.0); ALKALINE PHOSPHATASE 69 U/L (46-116); ANION GAP 12.1 (5-15); ASPARTATE AMNIOTRANSFERASE,AST 16 U/L (15-37); BILIRUBIN TOTAL 0.3 mg/dL (0.2-1.0); BLOOD UREA NITROGEN,BUN 12 mg/dL (7-18); BUN/CREATININE RATIO 13.3 (14-18); CALCIUM 8.8 mg/dL (8.5-10.1); CARBON DIOXIDE,CO2 29 mEq/L (21-32); CHLORIDE,CL 103 mEq/L (98-107); CREATININE 0.9 mg/dL (0.55-1.02); EST CRCL DRUG DOSING (CG) 72.29 mL/min; ESTIMATED GFR 88 mL/min (>60); GLUCOSE RANDOM 88 mg/dL (70-99); POTASSIUM,K 4.1 mEq/L (3.5-5.1); SODIUM,NA 140 mEq/L (136-145)
[2024-09-10 10:27] LABS: TROPONIN I HIGH SENSITIVITY < 4 pg/mL (<=51)
[2024-09-10 10:50] LABS: PRO B-TYPE NATRIUR PEPT,BNPPRO 187 pg/mL (0-125)
== END 2024-09-10 11:50 | disposition home or self-care (01) ==
LOC: JD.ED 09:15
DX: R07.9 Chest pain, unspecified (principal); R05.9 Cough, unspecified; Z90.49 Acquired absence of other specified parts of digestive tract; Z86.16 Personal history of COVID-19; Z88.1 Allergy status to other antibiotic agents; Z88.8 Allergy status to other drugs, medicaments and biological substances
CPT/HCPCS: 36415; 71045; 71045-26; 80053; 83880; 84484; 84703; 85025; 93005; 99285